=== PATIENT | female | born 1955 | race Caucasian/White ===

== ENCOUNTER → 2021-09-06 | Outpatient (CLI) | payer MEDICARE, OTHER ==
[~2021-09-06] MED LIST: FLAGYL500 MG PO; LEVAQUIN750 MG PO; MULTI VIT PO; NORCO 7.5-3251 EACH PO; THERAGRAN M TAB1 EA PO; VIBRAMYCIN100 MG PO; VIT D PO; VITAMIN D35000 UNI1 PO; ZOFRAN ODT 4 MG4 MG SL
== END ==
LOC: LAB 14:39
DX: Z20.822 Contact with and (suspected) exposure to COVID-19 (principal); H02.839 Dermatochalasis of unspecified eye, unspecified eyelid
CPT/HCPCS: U0002